=== PATIENT | female | born 1960 | race Caucasian/White ===

== ENCOUNTER 2018-03-31 18:43 | Emergency (ER) | payer OTHER, SELFPAY ==
[2018-03-31 18:49] VITALS: BP 143/78; PULSE 74; RESP 18; TEMP 36.7; O2SAT 99
[2018-03-31 19:01] VITALS: RESP 16
--- NOTE | 2018-03-31 19:16 | W.ED.GENAD ---
Discharge Plan Disposition Patient Disposition: HOME Condition: Stable Discharge Details Chief Complaint: GenMedical Clinical Impression: Sinus infection, Odontalgia Primary Care Provider: Suzan Hanley ED Provider: Rosi Singh Home Meds and New Rx's Prescriptions: New prednisone 20 mg tablet 20 mg PO DAILY Qty: 9 RF: 0 doxycycline hyclate 100 mg tablet 100 mg PO BID 5 Days Qty: 10 RF: 0 Continued acetaminophen 500 mg Tablet 500 mg PO Q6H PRNRF: 0 ibuprofen 400 mg Tablet 400 mg PO PRN PRNRF: 0 Discharge Instructions Instructions: Sinusitis (ED), Toothache (ED) Additional Instructions: Continue to use a saline nose spray and [id number] nasal steroids as directed. If you have no improvement or worsening in symptoms over the next 2 days, start the antibiotics. Continue to alternate Tylenol and Motrin as needed and directed for pain. Follow-up with your scheduled appointment with your primary care doctor next week. Return immediately to the emergency department any worsening or new concerning Discharge Data Discharge Date/Time-TO BE ENTERED AT DEPARTURE: 03/31/18 20:01 Discharge Physician: Rosi Singh Medical Decision Making 57-year-old female with no past medical history who presents with upper dental pain and pain in the roof of her mouth for the past 2 days. Patient also admits to discomfort in her cheeks. She admits to mild headache also. She denies any known fever, nasal discharge, postnasal drip, sore throat, ear pain, cough, neck pain, shortness of breath or chest pain. She states she has been alternating Tylenol and Motrin for pain with some relief. She states she feels like her symptoms are due to a sinus infection. Vitals within normal limits. Afebrile. Patient appears nontoxic and in no acute distress. She has tenderness to palpation of her left frontal and maxillary sinus. Remainder of ENT exam within normal limits. No tenderness to palpation of her teeth. No dental abscess. Normal oropharynx. Normal neck exam without submandibular swelling and no evidence of Braulio's angina. Lungs clear to auscultation. With patient's sinus tenderness and complaint of dental pain with no evidence of abscess, her symptoms may be due to a sinusitis. As she has no complaint of fever or purulent drainage, her symptoms may be viral in nature. Patient states she would like to go to work tomorrow if possible. Will give a dose of PO steroids here and send home with a prescription for steroids. We will also send home with a prescription for doxycycline to start if no improvement or worsening of symptoms in the next 2 days. Patient is instructed to follow-up with primary care doctor for reevaluation and return here if worse. HPI General Mode of arrival: ambulatory. Date/Time Provider Initiated Documentation: 03/31/18 18:54. Limitations to Documentation: no limitations. Information obtained by: patient. HPI Narrative: Patient is a 57-year-old female with no past medical history who presents with pain in upper teeth and roof of mouth for the past 2 days. Patient denies any pain with chewing, brushing her teeth or any radiation of pain into her face. Patient states she has been alternating Tylenol and Motrin and irrigating with normal saline with some relief. Patient states she also took Sudafed today. Patient admits to some nausea later today. Patient admits to some mild headache but states the pain is mainly in her upper teeth. Patient denies any known injury. Patient states she recently went to the dentist and had a normal exam. She denies any known fever, nasal discharge, postnasal drip, sore throat, ear pain, cough, neck pain chest pain or shortness of breath. Patient states she is mainly concerned about a sinus infection. Related Data Home Medications Medication Instructions Recorded Confirmed acetaminophen 500 mg PO Q6H PRN 03/31/18 03/31/18 doxycycline hyclate 100 mg PO BID 5 Days #10 tab 03/31/18 ibuprofen 400 mg PO PRN PRN 03/31/18 03/31/18 prednisone 20 mg PO DAILY #9 tab 03/31/18 Previous Rx's Medication Instructions Recorded doxycycline hyclate 100 mg PO BID 5 Days #10 tab 03/31/18 prednisone 20 mg PO DAILY #9 tab 03/31/18 Allergies Allergy/AdvReac Type Severity Reaction Status Date / Time Penicillins Allergy Unknown Unverified 03/31/18 18:51 General Stated Complaint: GenMedical KEMAL: 4 Review of Systems Review of Systems All systems reviewed & are unremarkable except as noted in HPI and below Constitutional Reports as per HPI, Denies chills and Denies fever(s) Eyes Denies blurry vision ENT Denies dizziness, Denies sore throat and Denies throat swelling Cardiovascular Denies chest pain and Denies dyspnea Respiratory Denies dyspnea Gastrointestinal Denies abdominal pain, Denies diarrhea and Denies vomiting Genitourinary Denies hematuria and Denies dysuria Musculoskeletal Denies back pain and Denies numbness Integumentary/Breasts Denies lesions and Denies rash Neurologic Denies dizziness and Denies numbness Allergic/Immunologic Denies throat swelling [facility] Medical History No significant past medical history (Acute) Surgical History H/O section (Chronic) H/O shoulder surgery (Chronic) Social History Smoking/Tobacco Use Status: Never alcohol intake: current alcohol intake frequency: a few times a month substance use type: does not use Exam Const General: cooperative, healthy appearing and no acute distress HENMT Head: normal to inspection Ears: hearing grossly normal bilaterally, external ears normal and TM's normal bilaterally General nose exam: external nose normal Face and sinus: sinus tenderness frontal (left ) and maxillary (left) Mouth: oral mucosae normal Teeth and gingiva: dentition normal, no caries, no dentures and other (no abscess) Throat: posterior oropharynx normal Eyes General: appearance normal, both eyes and all related structures Pupils: PERRL EOM: EOM intact bilaterally Neck Neck: normal visual inspection and No submandibular swelling Lymphatic: no lymphadenopathy noted Chest Chest: normal inspection of the chest and no tenderness Resp Effort & Inspection: normal respiratory effort and able to speak in complete sentences Auscultation: clear to auscultation bilaterally Cardio Rate: regular rate Rhythm: regular rhythm GI Inspection: normal to inspection Skin General skin exam: no rashes or lesions noted Neuro General: alert, awake and oriented x3 Cognition: normal cognition Speech: speech normal Motor: muscle tone normal throughout Sensory Exam: no sensory deficits noted Extrem General: normal to inspection and full ROM Psych Appearance: grossly normal Mental Status: mental status grossly normal Speech and Movement: speech and movement normal Affect: normal affect Course Vital Signs Temperature 98.1 F 03/31/18 18:49 Pulse 74 03/31/18 18:49 Respiratory Rate 18 03/31/18 18:49 Blood Pressure 143/78 H 03/31/18 18:49 Pulse Oximetry 99 03/31/18 18:49 Temperature 98.1 F 03/31/18 18:49 Pulse 74 03/31/18 18:49 Respiratory Rate 16 03/31/18 19:01 Respiratory Effort Non-Labored 03/31/18 19:07 Respiratory Depth Normal 03/31/18 19:01 Respiratory Pattern Normal 03/31/18 19:01 Blood Pressure 143/78 H 03/31/18 18:49 Blood Pressure Position Sitting 03/31/18 18:49 Pulse Oximetry 99 03/31/18 18:49 Oxygen Delivery Method Room Air 03/31/18 18:49 Oxygen Flow Rate 0 03/31/18 18:49 Pain Level 5 03/31/18 18:49
[2018-03-31] MEDS: predniSONE 20 MG TAB 60 MG PO (19:57)
== END 2018-03-31 20:01 | disposition home or self-care (01) ==
PROVIDERS: Emergency Provider Physician Assistant; PCP Internal Medicine
DX: J01.90 Acute sinusitis, unspecified (principal)
CPT/HCPCS: 99283; J7512